=== PATIENT | female | born 1940 | race Caucasian/White ===

== ENCOUNTER 2021-04-14 11:23 | Emergency (ER) | payer MEDICARE, OTHER ==
[~2021-04-14] VITALS: Ht 170.2 cm; Wt 74.0 kg
[2021-04-14 11:57] VITALS: BP 170/83
== END 2021-04-14 13:29 | disposition home or self-care (01) ==
LOC: ER 11:24
DX: M71.22 Synovial cyst of popliteal space [Baker], left knee (principal); I80.292 Phlebitis and thrombophlebitis of other deep vessels of left lower extremity
CPT/HCPCS: 93971; 99284

== ENCOUNTER 2021-05-09 13:34 | Emergency (ER) | payer MEDICARE, OTHER ==
[~2021-05-09] VITALS: Ht 170.2 cm; Wt 75.0 kg
[2021-05-09 13:59] VITALS: BP 139/89
== END 2021-05-09 16:31 | disposition left against medical advice (07) ==
LOC: ER 13:35
DX: R51.9 Headache, unspecified (principal); Z53.21 Procedure and treatment not carried out due to patient leaving prior to being seen by health care provider